=== PATIENT | male | born 1990 | race Caucasian/White ===

== ENCOUNTER 2018-06-10 06:08 | Day surgery (SDC) | payer BC ==
[~2018-06-10 06:08] MED LIST: Buffered Lidocaine 0.9% SYRIN* 5 ML/SYR SYRINGE INTRADERM ONE; Dexamethasone IV* 4 MG/ML 1 ML (4 MG) IV SLOW PU ONE; Famotidine IV* 10 MG/ML 2 ML (20 mg) IV ONE; Lactated Ringers 1000 ML Bag* 1,000 ML IV SCH
[2018-06-10] MEDS ORDERED: Dexamethasone IV* 4 MG/ML 1 ML (4 MG) ONE (06:56)
[2018-06-10] MEDS ORDERED: Famotidine IV* 10 MG/ML 2 ML (20 mg) ONE (06:56)
[2018-06-10] MEDS ORDERED: Midazolam* 1 MG/ML 2 ML VIAL (2 MG) ONE (08:29)
[2018-06-10] MEDS ORDERED: fentaNYL* 50 MCG/ML 2 ML VIAL (100 MCG VIAL) ONE (08:29)
[2018-06-10] MEDS ORDERED: Ondansetron INJ* 2 MG/ML VIAL ONE (08:50)
[2018-06-10] MEDS ORDERED: HYDROcodone/ACET. 7.5/325 LIQ* 15 ML UDC ONE (09:20)
[2018-06-10 09:53] VITALS: BP 112/69
--- NOTE | 2018-06-10 15:33 | OP ---
DATE OF OPERATION: 06/10/18 - SDS DATE OF : [birth year] SURGEON: Pb Villeda M.D. PRE-OP DIAGNOSIS: Chronic tonsillitis. POST-OP DIAGNOSIS: Chronic tonsillitis. OPERATIVE PROCEDURE: Tonsillectomy. BRIEF HISTORY: This 27-year-old chronic recurring tonsillitis, elected for surgical management. DESCRIPTION OF PROCEDURE: The patient was taken to the operating room. General anesthetic was given, the patient was intubated. Tongue, mandible, and soft palate were retracted. Coblator was used to remove the tonsils. Once hemostasis was obtained, the patient was awakened, sent to recovery room in stable condition. Instrument and sponge counts were correct. Blood loss minimal. [id number]/[facility] #: [id number] MTDD
== END 2018-06-10 10:14 | disposition home or self-care (01) ==
LOC: OR 06:08
PROVIDERS: ATTEND Otolaryngology
DX: J35.01 Chronic tonsillitis (principal)
CPT/HCPCS: 88304; J1100; J2250; J2405; J3010